=== PATIENT | male | born 1950 | race Caucasian/White ===

== ENCOUNTER → 2021-05-10 | Outpatient (CLI) | payer MEDICARE ==
[~2021-05-10] MED LIST: ASPIR LOW81 MG PO; CELEXA10 MG PO; CLOPIDOGREL75 MG PO; COREG12.5 M1 PO; IMODIUM MULTI-S1 TAB PO; LIPITOR40 MG PO; LOPRESSOR25 MG; LORAZEPAM1 MG; NICODERM C21 MG/24 H TD; NITROSTAT SL; VITAMIN B122500 MCG SL; VITAMIN D5000 I3 PO; ZESTRIL5 MG PO
== END | disposition home or self-care (01) ==
LOC: RAD 11:15
PROVIDERS: ATTEND Chiropractor
DX: M47.817 Spondylosis without myelopathy or radiculopathy, lumbosacral region (principal); M51.37 Other intervertebral disc degeneration, lumbosacral region; M48.07 Spinal stenosis, lumbosacral region; G95.89 Other specified diseases of spinal cord